=== PATIENT | female | born 1975 | race Caucasian/White ===

== ENCOUNTER 2017-08-14 12:03 | Day surgery (SDC) | payer OTHER ==
[~2017-08-14] VITALS: Ht 166.4 cm; Wt 56.7 kg
[~2017-08-14 12:03] MED LIST: B-121500 MCG PO; ESSENTIAL WOMA1 EAC1 PO; HARD NAILS2500 MCG PO
[2017-08-14 12:26] VITALS: BP 108/55
[2017-08-14 15:05] VITALS: BP 100/58
[2017-08-14 15:50] VITALS: BP 104/53
== END 2017-08-14 16:00 | disposition home or self-care (01) ==
LOC: SDC
PROC: 0UBC7ZX Excision of Cervix, Via Natural or Artificial Opening, Diagnostic (ICD-10-PCS; principal; 2017-08-14)
DX: N87.1 Moderate cervical dysplasia (principal); Z82.49 Family history of ischemic heart disease and other diseases of the circulatory system
CPT/HCPCS: 88305; 88307; J1885; J2250; J2405; J3010